=== PATIENT | male | born 1950 | race Caucasian/White ===

== ENCOUNTER 2017-10-06 09:38 | Inpatient (IN) | payer MEDICARE, OTHER ==
[2017-10-06 10:22] LABS: BASO % 0 % (0-3); EOS % 1 % (0-3); HEMATOCRIT 45.4 % (39.0-53.0); LYMPH # 2.1 x10^3/uL (1.0-4.8); LYMPH % 29 % (24-48); MEAN CORPUSCULAR HEMOGLOBIN 32 pg (25-35); MEAN CORPUSCULAR HGB CONC 35 g/dL (31-37); MEAN CORPUSCULAR VOLUME 90 fL (79-100); MONO # 1.6 x10^3/uL (0.0-1.1); MONO % 23 % (0-9); NEUT # 3.3 x10^3uL (1.8-7.7); NEUT % 47 % (31-73); PLATELET COUNT 215 x10^3/uL (140-400); RED BLOOD COUNT 5.02 x10^6/uL (4.30-5.70); RED CELL DISTRIBUTION WIDTH 12.8 % (11.5-14.5); WHITE BLOOD COUNT 7.1 x10^3/uL (4.0-11.0)
[2017-10-06 10:28] LABS: ADD MAN DIFF? YES
[2017-10-06 10:29] LABS: ANION GAP 8 (6-14); BLOOD UREA NITROGEN 16 mg/dL (8-26); BUN/CREATININE RATIO 18 (6-20); CARBON DIOXIDE 30 mmol/L (21-32); CHLORIDE 100 mmol/L (98-107); CREATININE 0.9 mg/dL (0.7-1.3); GFR 83.9; GLUCOSE 128 mg/dL (70-99); POTASSIUM 3.7 mmol/L (3.5-5.1); SODIUM 138 mmol/L (136-145)
[2017-10-06 10:34] LABS: ALBUMIN 3.4 g/dL (3.4-5.0); ALBUMIN/GLOBULIN RATIO 0.8 (1.0-1.7); ALK PHOS 63 U/L (46-116); ALT (SGPT) 28 U/L (16-63); AST (SGOT) 33 U/L (15-37); TOTAL BILIRUBIN 0.5 mg/dL (0.2-1.0); TOTAL PROTEIN 7.5 g/dL (6.4-8.2)
[2017-10-06 10:40] LABS: TROPONINI < 0.017 ng/mL (0.000-0.055)
[2017-10-06] MEDS ORDERED: ACETAMINOPHEN 325 MG TABLET. PO (12:00)
[2017-10-06] MEDS ORDERED: ONDANSETRON PF 4 MG/2 ML VIAL. IV (12:00)
[2017-10-06] MEDS ORDERED: fentaNYL PF VIAL 100 MCG/2 ML VIAL IV (12:00)
[2017-10-06] MEDS: IV NORMAL SALINE 1000ML BAG 1,000 ML IV (12:18)
[2017-10-06 12:38] LABS: LACTIC ACID 1.6 mmol/L (0.4-2.0)
[2017-10-06] MEDS: AZITHRMYCN 500MG IVPB FOR OMNI 250 ML IV (13:27)
[2017-10-06 13:49] LABS: % ATYL 5 % (0-0); % BANDS 4 % (0-9); % LYMPHS 19 % (24-48); % MONOS 17 % (0-10); % SEGS 55 % (35-66); PLT ESTIMATE ADEQUATE (ADEQUATE)
[2017-10-06 14:27] LABS: LACTIC ACID 1.5 mmol/L (0.4-2.0)
[2017-10-06] MEDS: methylPREDNISolone SOD SUCC PF 125 MG/2 ML VIAL. IV ×2 (14:56→20:50)
[2017-10-06] MEDS: LACTOBACILLUS RHAMNOSUS GG 1 CAPSULE. PO ×2 (14:56→20:49)
[2017-10-06] MEDS: ENOXAPARIN 40 MG/0.4 ML SYRINGE. SQ (14:59)
[2017-10-06] MEDS: OSELTAMIVIR 75 MG CAPSULE PO ×2 (15:23→20:49)
[2017-10-06] MEDS: guaiFENesin DM 200MG/20MG 10 ML SYRUP PO (15:23)
[2017-10-06] MEDS: IPRATRPIUM/ALBUTEROL 0.5/2.5MG 3 ML NEBU. NEB ×2 (16:46→19:26)
[2017-10-06] MEDS: ZOLPIDEM 5 MG TABLET. PO (22:17)
[2017-10-07 06:03] LABS: ADD MAN DIFF? NO
[2017-10-07 06:14] LABS: BASO % 0 % (0-3); EOS % 0 % (0-3); HEMATOCRIT 42.2 % (39.0-53.0); HEMOGLOBIN 14.7 g/dL (13.0-17.5); LYMPH # 0.9 x10^3/uL (1.0-4.8); LYMPH % 26 % (24-48); MEAN CORPUSCULAR HEMOGLOBIN 31 pg (25-35); MEAN CORPUSCULAR HGB CONC 35 g/dL (31-37); MEAN CORPUSCULAR VOLUME 90 fL (79-100); MONO # 0.3 x10^3/uL (0.0-1.1); MONO % 8 % (0-9); NEUT # 2.3 x10^3uL (1.8-7.7); NEUT % 66 % (31-73); PLATELET COUNT 223 x10^3/uL (140-400); RED BLOOD COUNT 4.69 x10^6/uL (4.30-5.70); RED CELL DISTRIBUTION WIDTH 12.7 % (11.5-14.5); WHITE BLOOD COUNT 3.5 x10^3/uL (4.0-11.0)
[2017-10-07 06:49] LABS: ALBUMIN/GLOBULIN RATIO 0.8 (1.0-1.7); ALK PHOS 56 U/L (46-116); ALT (SGPT) 27 U/L (16-63); ANION GAP 11 (6-14); AST (SGOT) 28 U/L (15-37); BLOOD UREA NITROGEN 14 mg/dL (8-26); BUN/CREATININE RATIO 18 (6-20); CALCIUM 8.7 mg/dL (8.5-10.1); CARBON DIOXIDE 26 mmol/L (21-32); CHLORIDE 102 mmol/L (98-107); CREATININE 0.8 mg/dL (0.7-1.3); GFR 96.1; GLUCOSE 164 mg/dL (70-99); POTASSIUM 4.1 mmol/L (3.5-5.1); SODIUM 139 mmol/L (136-145); TOTAL BILIRUBIN 0.4 mg/dL (0.2-1.0); TOTAL PROTEIN 6.9 g/dL (6.4-8.2)
[2017-10-07] MEDS: IPRATRPIUM/ALBUTEROL 0.5/2.5MG 3 ML NEBU. NEB ×4 (07:36→19:47)
[2017-10-07] MEDS: LACTOBACILLUS RHAMNOSUS GG 1 CAPSULE. PO ×2 (08:43→20:01)
[2017-10-07] MEDS: AZITHROMYCIN 250 MG TABLET. PO (08:43)
[2017-10-07] MEDS: methylPREDNISolone SOD SUCC PF 125 MG/2 ML VIAL. IV ×2 (08:43→20:01)
[2017-10-07] MEDS: OSELTAMIVIR 75 MG CAPSULE PO ×2 (08:43→20:02)
[2017-10-07] MEDS: cefTRIAXone IV Push 1 GM VIAL. IVP (12:25)
[2017-10-07] MEDS: ENOXAPARIN 40 MG/0.4 ML SYRINGE. SQ (15:33)
[2017-10-07] MEDS: CEFPODOXIME PROXETIL 100 MG TABLET. PO (20:02)
[2017-10-07] MEDS: ZOLPIDEM 5 MG TABLET. PO (20:02)
[2017-10-08] MEDS: IPRATRPIUM/ALBUTEROL 0.5/2.5MG 3 ML NEBU. NEB ×2 (07:21→11:21)
[2017-10-08] MEDS: AZITHROMYCIN 250 MG TABLET. PO (08:33)
[2017-10-08] MEDS: OSELTAMIVIR 75 MG CAPSULE PO (08:34)
[2017-10-08] MEDS: CEFPODOXIME PROXETIL 100 MG TABLET. PO (08:34)
[2017-10-08] MEDS: LACTOBACILLUS RHAMNOSUS GG 1 CAPSULE. PO (08:34)
[2017-10-08] MEDS: methylPREDNISolone SOD SUCC PF 125 MG/2 ML VIAL. IV (08:34)
[2017-10-08] MEDS: ENOXAPARIN 40 MG/0.4 ML SYRINGE. SQ (14:00)
== END 2017-10-08 16:52 | disposition home or self-care (01) | DRG 193 ==
LOC: ER 09:38 → 5 NORTH 11:48
DX: J10.08 Influenza due to other identified influenza virus with other specified pneumonia (principal); J96.01 Acute respiratory failure with hypoxia; J12.9 Viral pneumonia, unspecified; G47.00 Insomnia, unspecified; J10.1 Influenza due to other identified influenza virus with other respiratory manifestations; F12.90 Cannabis use, unspecified, uncomplicated; Z80.0 Family history of malignant neoplasm of digestive organs; Z80.6 Family history of leukemia; Z80.7 Family history of other malignant neoplasms of lymphoid, hematopoietic and related tissues; Z87.442 Personal history of urinary calculi; Z90.81 Acquired absence of spleen; Z87.81 Personal history of (healed) traumatic fracture
CPT/HCPCS: 36415; 71046; 80053; 83605; 84484; 85007; 85025; 87040; 93005; 94618; 94640; 94760; 96374; 99285; 99285-25; J0456; J0690; J0696; J1650; J2930; J7030; J7620; Q0144